=== PATIENT | female | born 1980 | race Caucasian/White ===

== ENCOUNTER 2017-11-08 17:19 | Emergency (ER) | payer MEDICAID, OTHER ==
[~2017-11-08] VITALS: Ht 167.6 cm; Wt 90.7 kg
[2017-11-08 17:27] VITALS: BP 142/91
== END 2017-11-08 22:11 | disposition left against medical advice (07) ==
LOC: ER 17:19 → EDBD 17:19 → ER 22:09
DX: R10.84 Generalized abdominal pain (principal); R11.2 Nausea with vomiting, unspecified; E11.9 Type 2 diabetes mellitus without complications; K21.9 Gastro-esophageal reflux disease without esophagitis; I10 Essential (primary) hypertension; F17.210 Nicotine dependence, cigarettes, uncomplicated

== ENCOUNTER 2017-11-09 08:12 | Emergency (ER) | payer MEDICAID ==
[~2017-11-09] VITALS: Ht 154.9 cm; Wt 93.0 kg
[2017-11-09 08:35] VITALS: BP 141/99
[2017-11-09 08:48] LABS: Basophils # (auto) 0.1 uL; Basophils % (auto) 0.7 % (0.0-2.0); Eosinophils # (auto) 0 uL; Eosinophils % (auto) 0.5 % (0.0-7.0); Hematocrit 48.3 % (36.0-46.0); Hemoglobin 16.8 g/dL (12.2-16.2); Lymphocytes # (auto) 1.7 uL; Lymphocytes % (auto) 18.4 % (10.0-50.0); Mean Corpuscular Hemoglobin 30.6 pg (28.0-32.0); Mean Corpuscular Hgb Conc. 34.7 g/dL (32.0-36.0); Mean Corpuscular Volume 88.1 fL (80.0-100.0); Monocytes # (auto) 0.5 uL; Monocytes % (auto) 4.8 % (0.0-12.0); Neutrophils # (auto) 7.1 uL; Neutrophils % (auto) 75.6 % (37.0-80.0); Nucleated Red Blood Cells % 0.1 %; Platelet Count (auto) 320 10^3/uL (140-450); Red Blood Cells 5.48 10^6/uL (4.0-5.20); Red Cell Distribution Width 12.9 % (11.8-14.3); White Blood Cell 9.4 10^3/uL (4.4-10.8)
[2017-11-09 08:50] LABS: Urine Bacteria MANY /hpf (None Seen); Urine Blood TRACE /uL (Negative); Urine Mucus FEW (None Seen); Urine Specific Gravity 1.026 (1.001-1.035); Urine WBC 26 /hpf (0 - 5)
[2017-11-09 09:10] LABS: Albumin 3.8 g/dL (3.4-5.0); BUN/Creatinine Ratio 10.5; Calcium 9.2 mg/dL (8.5-10.1); Potassium 3.9 mmol/L (3.5-5.1)
[2017-11-09 09:13] LABS: Bilirubin, Total 1.3 mg/dL (0.2-1.0); Total Protein 8.1 g/dL (6.4-8.2)
[2017-11-09] MEDS ORDERED: KETOROLAC TROMETH 60MG/2ML VIAL IM ONE (09:45)
== END 2017-11-09 10:01 | disposition home or self-care (01) ==
LOC: ER 08:12
DX: N39.0 Urinary tract infection, site not specified (principal); E11.9 Type 2 diabetes mellitus without complications; I10 Essential (primary) hypertension; K21.9 Gastro-esophageal reflux disease without esophagitis; F17.210 Nicotine dependence, cigarettes, uncomplicated; Z88.8 Allergy status to other drugs, medicaments and biological substances; Z88.5 Allergy status to narcotic agent; Z88.1 Allergy status to other antibiotic agents
CPT/HCPCS: 36415; 76705; 80053; 81001; 81025; 82150; 83690; 85025; 96372; 99285; J1885